=== PATIENT | male | born 1960 | race Caucasian/White ===

== ENCOUNTER 2024-12-13 03:42 | Emergency (ER) | payer MEDICARE, MEDICAID, SELFPAY ==
[2024-12-13] VITALS (12 sets, daily range): BP systolic 90–208; BP diastolic 53–175
[2024-12-13 05:04] LABS: % Basophils 0.7 % (0-2); % Eosinophils 3.9 % (0-6); % Immature Granulocytes 0.1 % (0-0.5); % Lymphocytes 21.7 % (20.5-51.1); % Monocytes 7.4 % (1.7-9.3); % Neutrophils 66.2 % (42.2-75.2); Absolute Basophils 0.1 10^3/uL (0-0.2); Absolute Eosinophils 0.3 10^3/uL (0-0.7); Absolute Lymphocytes 1.5 10^3/uL (1.2-3.4); Absolute Monocytes 0.5 10^3/uL (0.1-0.6); Absolute Neutrophils 4.6 10^3/uL (1.4-6.5); Hematocrit 38.8 % (39.0-52.0); Hemoglobin 13.4 g/dL (13.0-18.0); Mean Corp Hgb Conc. 34.5 g/dL (33.0-37.0); Mean Corpuscular Hgb 31.9 pg (27.0-31.0); Mean Corpuscular Volume 92.4 fL (80.0-94.0); Mean Platelet Volume 9.5 fL (7.4-10.4); Nucleated Red Blood Cells % 0 % (-); Platelet Count 182 10^3/uL (130-400); Red Cell Dist. Width 12.9 % (11.5-14.5)
[2024-12-13 05:25] LABS: Lactic Acid 0.7 mmol/L (0.7-2.0)
[2024-12-13 05:33] LABS: Blood Urea Nitrogen 28 mg/dl (9-20); Calcium 8.7 mg/dl (8.4-10.2); Carbon Dioxide 26 mmol/L (22-30); Chloride 104 mmol/L (98-107); Glucose 90 mg/dl (70-99); Sodium 136 mmol/L (135-145); eGFR > 60.00
--- NOTE | 2024-12-13 05:53 | ED.GENMED ---
History of Present Illness
General
Chief Complaint: Change in Mental Status
Source: records
Exam Limitations: dementia
Time Seen by Provider: 12/13/24 05:53
History of Present Illness
History of Present Illness:
64-year-old male with a history of chronic dementia progression of symptoms over time however his symptoms and dementia seemed worse yesterday. He had an unwitnessed fall this morning. Sent in for evaluation. Patient does not add any history or
complaints.
Past History
Past History
ED Past Medical History: Psychiatric and Other (Dementia/Parkinson's)
Review of Systems
Review of Systems
Unable to obtain full review of systems at this time due to: dementia
All Other Systems: Not applicable
Phy Exam
Physical Exam
Physical Exam:
GENERAL: Alert and oriented x 1 in no apparent distress. No scalp trauma
EYE: Orbits normal.
NECK: Supple, nontender
ENT: Pharynx without erythema
CARDIAC: Regular rate and rhythm without any obvious murmurs.
LUNGS: Clear breath sounds,normal
ABDOMEN: Soft, without focal tenderness or distention
NEUROLOGICAL: Alert and oriented , grossly non-focal
SKIN: Warm and dry, superficial abrasion to the left anterior tibia. Appears old
MUSCULOSKELETAL: No edema, mild contracture or spasm of the left arm.
PSYCH: Flat affect
Course
Orders/Labs/Results
Orders:
Orders
12/13/24 04:39
CT Head W/o Iv Contrast Urgent
Comment:
Reason For Exam: unwitnessed fall/cms
12/13/24 04:44
Cervical Spine wo Contrast CT [CT Cervical Spine W/o Iv Contr] Urgent
Comment:
Reason For Exam: unwitnessed fall/cms
12/13/24 04:55
Basic Metabolic Panel Urgent
Comment: NO K
Complete Blood Count/With Diff Urgent
Lactic Acid Urgent
12/13/24 07:04
Comprehensive Metabolic Panel Urgent
Urinalysis Reflex To Culture Urgent
Date Specimen was Collected: 12/13/24
Time Specimen was Collected: 04:40
Urine Microscopic Reflex Cult Urgent
12/13/24 08:33
0.9% Sodium Chloride 1000 ml [Nss] 1,000 ml IV BOLUS
Abnormal Lab Results
12/13/24 12/13/24
04:55 07:04
RBC 4.20 L 10^6/uL
(4.70-6.10)
Hct 38.8 L %
(39.0-52.0)
MCH 31.9 H pg
(27.0-31.0)
BUN 28 H mg/dl 27 H mg/dl
(9-20) (9-20)
Creatinine 0.6 L mg/dL
(0.7-1.3)
Total Protein 5.7 L g/dl
(6.3-8.2)
Urine Ketones 2+ A
(Negative)
Urine Urobilinogen 2+ A
(Neg - 1+)
Urine Bacteria (Reflex) Few A
(Negative)
Urine Albumin (Reflex) 1+ A
(Neg - Trace)
12/13/24 04:55
12/13/24 07:04
Vital Signs
Initial and Last Documented VS:
Initial Vital Signs
Temp Pulse Resp BP Pulse Ox
97.5 F 70 22 110/87 96
12/13/24 03:46 12/13/24 03:46 12/13/24 03:46 12/13/24 03:46 12/13/24 03:46
Last Documented Vital Signs
Temp Pulse Resp BP Pulse Ox
97.5 F 76 18 119/76 97
12/13/24 03:46 12/13/24 07:38 12/13/24 07:38 12/13/24 07:38 12/13/24 07:39
*Radiology
Radiology exam reviewed: radiology read reviewed (No acute findings on CT.)
*Pulse Oximetry
Patient hypoxic: no
*Critical Care Note
Total Time (30-74mins, 75-104mins- exclusive of procedures): Not Applicable
Update Note
Update Note:
Patient is remained medically stable. No serious issues found. No trauma no infectious issues. Brother updated. Stable for discharge mildly dehydrated.
ED Attending Note
-
Portions of this chart may have been created with voice recognition software.� Occasional wrong word or��sound alike� substitutions may have occurred due to the inherent limitations of voice recognition software.
Discharge Plan
Departure
Patient Disposition: Home (Routine Discharge)
Date of Disposition: 12/13/24
Time of Disposition: 09:14
Patient with high blood pressure during this ER visit?: No
Discharge Problem:
Change in mental status, Mild dehydration
Instructions: Altered Mental Status (DC), Dementia (DC)
Prescriptions:
No Action
quetiapine [Seroquel] 25 mg Tablet
25 mg PO DAILY
acetaminophen [Tylenol] 325 mg Tablet
650 mg PO QID PRN (Reason: pain)
polyethylene glycol 3350 17 gram Powder In Packet
17 g PO DAILY PRN (Reason: Constipation)
pravastatin 40 mg Tablet
40 mg PO DAILY
citalopram 10 mg Tablet
10 mg PO DAILY
loperamide [Imodium A-D] 2 mg Tablet
2 mg PO Q6H PRN (Reason: diarrhea)
guaifenesin 100 mg/5 mL Liquid
300 mg PO Q4H PRN (Reason: cough)
famotidine 20 mg Tablet
20 mg PO DAILY
docusate sodium 100 mg Capsule
100 mg PO BID
folic acid 1 mg Tablet
1 mg PO DAILY
calcium carbonate 500 mg calcium (1,250 mg) Tablet,Chewable
500 mg PO DAILY
aspirin 81 mg Tablet
81 mg PO DAILY
carbidopa-levodopa 25-100 mg Tablet
2 tab PO QID
quetiapine [Seroquel] 50 mg Tablet
50 mg PO HS
diclofenac sodium 1 % Gel
4 g TOPICAL QID
Rx Instructions:
apply to R shoulder for pain
melatonin 5 mg Tablet
10 mg PO HS PRN (Reason: insomnia)
cholecalciferol (vitamin D3) [Vitamin D3] 125 mcg (5,000 unit) Tablet
125 mcg PO DAILY
Referrals:
Tha Aviles MD [Family Provider] - Follow up in 2-3 days
Interventions
Interventions:
*Risk Screen - Suicide Last Done: 12/13/24 03:46
*General Assessment Last Done: 12/13/24 03:46
*Neglect/Abuse Screening Last Done: 12/13/24 03:46
ED- Fall Risk Assessment Last Done: 12/13/24 07:39
ED- Pulmonary Assessment Last Done: 12/13/24 07:39
ED-Psychological Assessment Last Done: 12/13/24 07:39
ED- Neurological Assessment Last Done: 12/13/24 04:10
ED- Cardiac Assessment Last Done: 12/13/24 07:39
Discharge Date and Time
Print Language: KOREAN
[2024-12-13] MEDS: NSS 1000 IV (06:00)
[2024-12-13 07:17] LABS: Urine Albumin 1+ (Neg - Trace); Urine Bilirubin Negative (Negative); Urine Character Clear (Clear); Urine Color Yellow; Urine Glucose Negative (Negative); Urine Ketone 2+ (Negative); Urine Leukocyte Negative (Negative); Urine Nitrite Negative (Negative); Urine Occult Blood Negative (Negative); Urine Specific Gravity 1.025 (<1.030); Urine Urobilinogen 2+ (Neg - 1+)
[2024-12-13 07:28] LABS: ALT (SGPT) < 10 U/L (0-50); AST (SGOT) 17 U/L (17-59); Albumin 3.5 g/dl (3.5-5.0); Alkaline Phosphatase 76 U/L (38-126); Blood Urea Nitrogen 27 mg/dl (9-20); Calcium 8.6 mg/dl (8.4-10.2); Carbon Dioxide 27 mmol/L (22-30); Chloride 105 mmol/L (98-107); Glucose 84 mg/dl (70-99); Potassium 4.3 mmol/L (3.5-5.1); Sodium 138 mmol/L (135-145); Total Bilirubin 0.8 mg/dl (0.2-1.3); Total Protein 5.7 g/dl (6.3-8.2); eGFR > 60.00
[2024-12-13 08:10] LABS: Urine Amorphous Seen; Urine Bacteria Few (Negative); Urine Red Blood Cell 0-2 /HPF (0-2); Urine Urothelial Cell 0-2 /LPF (FEW); Urine White Cell 0-2 /HPF (0-5)
--- NOTE | 2024-12-13 09:41 | EDRN ---
Pt scheduled to leave via [facility] ambulance at 10:30.
--- NOTE | 2024-12-13 09:42 | EDRN ---
Report was called at [facility] 09:00 by Jack Granados RN at [phone].
--- NOTE | 2024-12-13 10:45 | EDRN ---
Pt cleansed after having very large soft brown BM prior to leaving.
== END 2024-12-13 10:55 ==
LOC: EMR 03:42
PROVIDERS: Emergency Medicine; EMERGENCY PHYSICIAN Emergency Medicine; FAMILY PHYSICIAN Internal Medicine
DX: E86.0 Dehydration (principal); G20.A1 Parkinson's disease without dyskinesia, without mention of fluctuations; F02.80 Dementia in other diseases classified elsewhere, unspecified severity, without behavioral disturbance, psychotic disturbance, mood disturbance, and anxiety; S80.812A Abrasion, left lower leg, initial encounter; W19.XXXA Unspecified fall, initial encounter
CPT/HCPCS: 99284; 96360; 96361; 70450; 72125; 80048; 80053; 81003; 81015; 83605; 85025

== ENCOUNTER 2025-01-04 14:56 | Emergency (ER) | payer MEDICARE, OTHER, SELFPAY ==
[2025-01-04 14:59] VITALS: BP 155/74
--- NOTE | 2025-01-04 15:12 | ED.GENMED ---
History of Present Illness
General
Chief Complaint: Change in Mental Status
Source: records, family (Brother), ambulance crew and snf
Exam Limitations: dementia
Time Seen by Provider: 01/04/25 15:04
Nursing documentation reviewed up to this point in time: agreed with
History of Present Illness
History of Present Illness:
64-year-old male with past medical history of hypertension, hyperlipidemia, GERD, Parkinson's disease, dementia presents to the emergency room from [facility] for evaluation of agitation. Patient is unable to meaningfully dissipate history due
to his severe dementia and advanced Parkinson's disease. According to snf report he was agitated today which happens occasionally; he is ordered for Seroquel as well as Ativan and was given a dose of as needed Ativan 2 mg IM today but this
did not help with his agitation and so he was sent to the ER to be assessed. He does have a history of falls but no falls witnessed or reported per snf staff. I spoke to his brother he says that patient has had similar issues in the past,
no other acute concerns.
Past History
Past History
ED Past Medical History: Psychiatric and Other (Dementia/Parkinson's)
Review of Systems
Review of Systems
Unable to obtain full review of systems at this time due to: dementia
All Other Systems: Not applicable
Phy Exam
Physical Exam
Physical Exam:
General: Awake, alert, agitated trying to get out of bed
Head: Normocephalic, atraumatic
Eyes: Conjunctiva normal, pupils equal round and reactive to light bilaterally
Throat: Airway intact, handling secretions
Neck: Trachea midline, supple without meningismus
Lungs: Clear to auscultation bilaterally, no wheezing, rales, rhonchi
Heart: Regular rate and rhythm, no murmurs, gallops, or rubs
Abd: Soft, non distended, no apparent tenderness, no palpable masses or hernias
Back: No signs of trauma to the back or flank
Neuro: Awake and alert, moving all extremities equally
Extremities: Old abrasions and minor old bruises on the legs but no signs of acute trauma and no apparent pain with palpation of all extremities; no edema in extremities, equal pulses in all extremities
Scores
Heart Failure Risk
Heart Failure Risk Score: Not Applicable
Heart Score for Chest Pain Patients
STEMI patient?: Not applicable
Withdrawal Assessment of Alcohol
Withdrawal Assessment Completed?: Not applicable
Course
Orders/Labs/Results
Orders:
Orders
01/04/25 15:11
CT Head W/o Iv Contrast Urgent
Comment:
Reason For Exam: change in mentation
Urinalysis Reflex To Culture Urgent
Date Specimen was Collected: 01/04/25
Time Specimen was Collected: 15:17
01/04/25 15:20
Electrocardiogram (*1) Urgent
Reason for Study: QTc Monitoring
EKG- Treatment ONCE
01/04/25 15:40
Olanzapine [Zyprexa] 10 mg IM NOW STA
01/04/25 15:42
Midazolam HCl [Versed] 2 mg IM NOW STA
01/04/25 15:53
COVID-19 Antigen Urgent
Source: Nasal Swab
Complete Blood Count/With Diff Urgent
Comprehensive Metabolic Panel Urgent
Influenza A+B Rapid Molecular Urgent
[facility] Source: Nasal Swab
Specimen Description:
Abnormal Lab Results
01/04/25
15:53
RBC 4.35 L 10^6/uL
(4.70-6.10)
MCH 32.2 H pg
(27.0-31.0)
Lymphocytes % 17.5 L %
(20.5-51.1)
BUN 23 H mg/dl
(9-20)
Creatinine 0.6 L mg/dL
(0.7-1.3)
Glucose 138 H mg/dl
(70-99)
Total Protein 6.1 L g/dl
(6.3-8.2)
01/04/25 15:53
01/04/25 15:53
Vital Signs
Initial and Last Documented VS:
Initial Vital Signs
Temp Pulse Resp BP Pulse Ox
36.6 C 99 20 155/74 98
01/04/25 14:59 01/04/25 14:59 01/04/25 14:59 01/04/25 14:59 01/04/25 14:59
Last Documented Vital Signs
Temp Pulse Resp BP Pulse Ox
36.6 C 83 20 155/74 95
01/04/25 14:59 01/04/25 16:43 01/04/25 16:43 01/04/25 14:59 01/04/25 16:43
MDM/Problems Addressed
Differential Diagnosis Includes:
Agitated delirium related to dementia, infection such as UTI or pneumonia or viral syndrome, brain bleed, electrolyte abnormality/dehydration
MDM/Problems Addressed:
64-year-old male presents for change in mental status�more agitated today and refractory to normal meds. Vitals and exam as above. Will send off labs and basic infectious workup to evaluate for any secondary cause for agitation. Will medicate to
calm him as he continues to try to get out of bed and is not redirectable. Check EKG for QTc monitoring. Check CT head. Reassess after the above.
CT head negative for any acute pathology. Labs here are unremarkable. Patient calm since sedation here. I suspect this is an episode of agitated delirium in the setting of known dementia. Call placed to patient's brother to discuss disposition
at this point no clear emergent pathology and I think he can be discharged back to snf. Brother feels comfortable this plan. Will arrange for transport back to snf.
Chronic conditions affecting care:
Dementia, Parkinson's
Acute Exacerbation and/or Progression of Chronic Illness:
Acutely hypertensive
Acute Exacerbation and/or Progression of Chronic Illness: HTN
*Radiology
Radiology exam reviewed: radiology read reviewed
*Pulse Oximetry
Patient hypoxic: no
*EKG
Interpreted by ED Provider?: Yes
Heart Rate: 78
Rate: normal
Rhythm: sinus
St[place]: normal axis
Interval: normal interval and normal QT interval
QRS Pattern: normal QRS
Ischemia: no ischemia
*Critical Care Note
Total Time (30-74mins, 75-104mins- exclusive of procedures): Not Applicable
Data Reviewed
Review of Other/Old Records Reveals: Labs and Records
Source: records, family, ambulance crew and snf
Patient Management
Social determinants of health affecting care: Living situation (Lives in a monitored setting)
Escalation/DeEscalation of care consider admission/obs:
Shared decision making with brother�discharged back to snf
ED Attending Note
-
Portions of this chart may have been created with voice recognition software.� Occasional wrong word or��sound alike� substitutions may have occurred due to the inherent limitations of voice recognition software.
Discharge Plan
Departure
Patient Disposition: Home (Routine Discharge)
Date of Disposition: 01/04/25
Time of Disposition: 17:53
Patient with high blood pressure during this ER visit?: Yes
Discharge Problem:
Delirium
Instructions: Dementia (DC)
Prescriptions:
No Action
quetiapine [Seroquel] 25 mg Tablet
25 mg PO DAILY
acetaminophen [Tylenol] 325 mg Tablet
650 mg PO QID PRN (Reason: pain)
polyethylene glycol 3350 17 gram Powder In Packet
17 g PO DAILY PRN (Reason: Constipation)
pravastatin 40 mg Tablet
40 mg PO DAILY
citalopram 10 mg Tablet
10 mg PO DAILY
loperamide [Imodium A-D] 2 mg Tablet
2 mg PO Q6H PRN (Reason: diarrhea)
guaifenesin 100 mg/5 mL Liquid
300 mg PO Q4H PRN (Reason: cough)
famotidine 20 mg Tablet
20 mg PO DAILY
docusate sodium 100 mg Capsule
100 mg PO BID
folic acid 1 mg Tablet
1 mg PO DAILY
calcium carbonate 500 mg calcium (1,250 mg) Tablet,Chewable
500 mg PO DAILY
aspirin 81 mg Tablet
81 mg PO DAILY
carbidopa-levodopa 25-100 mg Tablet
2 tab PO QID
quetiapine [Seroquel] 50 mg Tablet
50 mg PO HS
diclofenac sodium 1 % Gel
4 g TOPICAL QID
Rx Instructions:
apply to R shoulder for pain
melatonin 5 mg Tablet
10 mg PO HS PRN (Reason: insomnia)
cholecalciferol (vitamin D3) [Vitamin D3] 125 mcg (5,000 unit) Tablet
125 mcg PO DAILY
Referrals:
El Almazan DO [Family Provider] - Follow up in 2-3 days
Activity Restrictions/Additional Instructions:
Thank you for visiting the Emergency Department at [facility].
1. Please schedule a follow up appointment as directed. Call first thing tomorrow morning to make an appointment.
2. If indicated, please take your medications as instructed and indicated on discharge paperwork.
3. If any of your symptoms do not improve, or persist, or become more severe within 6-12 hours, please return to the emergency department for further care.
4. Please return to the emergency department if you develop a headache, neck pain/stiffness, fever greater than 100.4F, chest pain, shortness of breath, persistent nausea, vomiting, slurred speech, difficulty walking, numbness/tingling, weakness,
signs of infection or any other symptoms that are worrisome to you.
Please call [phone] if you have any questions.
Interventions
Interventions:
*General Assessment Last Done: 01/04/25 14:59
ED- Fall Risk Assessment Last Done: 01/04/25 15:43
ED- Pulmonary Assessment Last Done: 01/04/25 15:43
ED- Neurological Assessment Last Done: 01/04/25 15:43
ED- Cardiac Assessment Last Done: 01/04/25 15:43
Discharge Date and Time
Print Language: UZBEK
[2025-01-04] MEDS: VERSED 2 MG IM (15:49)
[2025-01-04] MEDS: ZYPREXA 10 MG IM (15:49)
[2025-01-04 16:25] LABS: % Basophils 0.5 % (0-2); % Eosinophils 3.5 % (0-6); % Immature Granulocytes 0.3 % (0-0.5); % Lymphocytes 17.5 % (20.5-51.1); % Monocytes 8.5 % (1.7-9.3); % Neutrophils 69.7 % (42.2-75.2); Absolute Eosinophils 0.3 10^3/uL (0-0.7); Absolute Lymphocytes 1.3 10^3/uL (1.2-3.4); Absolute Monocytes 0.6 10^3/uL (0.1-0.6); Absolute Neutrophils 5.2 10^3/uL (1.4-6.5); Hematocrit 40.4 % (39.0-52.0); Mean Corp Hgb Conc. 34.7 g/dL (33.0-37.0); Mean Corpuscular Hgb 32.2 pg (27.0-31.0); Mean Corpuscular Volume 92.9 fL (80.0-94.0); Mean Platelet Volume 9.7 fL (7.4-10.4); Nucleated Red Blood Cells % 0 % (-); Platelet Count 190 10^3/uL (130-400); Red Blood Cell Count 4.35 10^6/uL (4.70-6.10); Red Cell Dist. Width 12.4 % (11.5-14.5); White Blood Cell Count 7.4 10^3/uL (4.8-10.8)
[2025-01-04 16:38] LABS: ALT (SGPT) < 10 U/L (0-50); AST (SGOT) 17 U/L (17-59); Alkaline Phosphatase 90 U/L (38-126); Blood Urea Nitrogen 23 mg/dl (9-20); Calcium 8.9 mg/dl (8.4-10.2); Carbon Dioxide 25 mmol/L (22-30); Chloride 104 mmol/L (98-107); Glucose 138 mg/dl (70-99); Sodium 136 mmol/L (135-145); Total Bilirubin 0.8 mg/dl (0.2-1.3); Total Protein 6.1 g/dl (6.3-8.2); eGFR > 60.00
[2025-01-04 16:42] LABS: COVID-19 Antigen Negative (Negative)
== END 2025-01-04 19:28 | disposition home or self-care (01) ==
LOC: EMR 14:56
PROVIDERS: EMERGENCY PHYSICIAN Emergency Medicine; FAMILY PHYSICIAN Family Medicine
DX: F03.90 Unspecified dementia, unspecified severity, without behavioral disturbance, psychotic disturbance, mood disturbance, and anxiety (principal); F05 Delirium due to known physiological condition; I10 Essential (primary) hypertension; E78.5 Hyperlipidemia, unspecified; K21.9 Gastro-esophageal reflux disease without esophagitis; G20.A1 Parkinson's disease without dyskinesia, without mention of fluctuations; Z11.52 Encounter for screening for COVID-19
CPT/HCPCS: 99285; 96372 ×2; 70450; 80053; 85025; 87502; 87811; 93005; J2358

== ENCOUNTER 2025-01-21 19:32 | Emergency (ER) | payer MEDICARE, OTHER, SELFPAY ==
[2025-01-21 19:34] VITALS: BP 113/68; BMI 24.1
--- NOTE | 2025-01-21 20:03 | ED.GENMED ---
History of Present Illness
General
Chief Complaint: Anxiety
Source: patient
Exam Limitations: none
Time Seen by Provider: 01/21/25 19:48
Nursing documentation reviewed up to this point in time: agreed with
History of Present Illness
History of Present Illness:
Patient to ED for eval of aggression. He has a history of parkinson's disease with severe dementia. According to [place] report he became aggressive with staff tonight. Brought to ED by EMS for eval. On arrival he is sleeping but arousable,
cooperative.
Past History
Past History
ED Past Medical History: GERD, HTN, Hypercholesterolemia, Psychiatric, Other (Dementia/Parkinson's) and Other (Long QT, dysphagia)
Review of Systems
Review of Systems
Allergies reviewed?: Yes
All Other Systems: ROS reviewed and negative except as documented in HPI and ROS
Constitutional: Reports no symptoms
EENT: Reports no symptoms
Respiratory: Reports no symptoms
Cardiac: Reports no symptoms
ABD/GI: Reports no symptoms
: Reports no symptoms
Musculoskeletal: Reports no symptoms
Skin: Reports no symptoms
Neurological: Reports no symptoms
Psychiatric: Reports other (aggitation [employer]IST)
Phy Exam
General Physical Exam
General Presentation: no apparent distress
General age: appears stated age
General Skin: warm and dry
General Habitus: normal
General Mental: alert
Cardiovascular Exam
Cardiovascular Exam: regular rate/rhythm
Pulmonary Exam
Pulmonary Exam: lungs clear and no respiratory distress
Gastrointestinal Exam
Gastrointestinal Exam: normal bowel sounds, non tender, soft, no organomegaly, no pulsatile mass and non distended
Musculoskeletal Exam
Musculoskeletal Exam: neuro vasc intact
Skin Exam
Skin Exam: normal color, warm/dry and other (old bruising noted to bilateral ant. knees, left lateral hip. Multiple healing abrasions/scratches noted to BLE)
Psychiatric Exam
Psychiatric Exam: normal mood/affect
Course
Orders/Labs/Results
Orders:
Orders
01/21/25 19:49
Complete Blood Count/With Diff Urgent
Comprehensive Metabolic Panel Urgent
01/21/25 20:04
Urinalysis Reflex To Culture Urgent
Date Specimen was Collected: 01/21/25
Time Specimen was Collected: 20:03
Urine Microscopic Reflex Cult Urgent
Abnormal Lab Results
01/21/25 01/21/25
19:49 20:04
RBC 4.32 L 10^6/uL
(4.70-6.10)
MCH 31.5 H pg
(27.0-31.0)
Eosinophils % 6.1 H %
(0-6)
Chloride 108 H mmol/L
(98-107)
BUN 30 H mg/dl
(9-20)
Glucose 135 H mg/dl
(70-99)
AST 15 L U/L
(17-59)
Total Protein 6.0 L g/dl
(6.3-8.2)
Urine Ketones 1+ A
(Negative)
Ur Occult Blood Reflex 1+ A
(Negative)
Urine Bacteria (Reflex) Few A
(Negative)
Urine Albumin (Reflex) 1+ A
(Neg - Trace)
01/21/25 19:49
01/21/25 19:49
Vital Signs
Initial and Last Documented VS:
Initial Vital Signs
Temp Pulse Resp BP Pulse Ox
98.5 F 72 16 113/68 96
01/21/25 19:34 01/21/25 19:34 01/21/25 19:34 01/21/25 19:34 01/21/25 19:34
Last Documented Vital Signs
Temp Pulse Resp BP Pulse Ox
98.5 F 72 16 113/68 96
01/21/25 19:34 01/21/25 19:34 01/21/25 19:34 01/21/25 19:34 01/21/25 19:34
*Critical Care Note
Total Time (30-74mins, 75-104mins- exclusive of procedures): Not Applicable
Update Note
Update Note:
Patient sent to ED from [place] for aggitation. He has a history of aggitation. On arrival to ED he is sleeping but arousable, cooperative. Labs reviewed. No concerning findings. No findings tonight to explain his outburst at [place] although he does
have a documented history of this. Will discharge back to [place].
ED Attending Note
-
Portions of this chart may have been created with voice recognition software.� Occasional wrong word or��sound alike� substitutions may have occurred due to the inherent limitations of voice recognition software.
Discharge Plan
Departure
Patient Disposition: [facility]/SNF
Date of Disposition: 01/21/25
Time of Disposition: 21:01
Patient with high blood pressure during this ER visit?: No
Condition: Good
Covid-19: Not Applicable
Discharge Problem:
Agitation due to dementia
Instructions: Anxiety, Adult (DC)
Prescriptions:
No Action
quetiapine [Seroquel] 25 mg Tablet
25 mg PO DAILY
acetaminophen [Tylenol] 325 mg Tablet
650 mg PO QID PRN (Reason: pain)
polyethylene glycol 3350 17 gram Powder In Packet
17 g PO DAILY PRN (Reason: Constipation)
pravastatin 40 mg Tablet
40 mg PO DAILY
citalopram 10 mg Tablet
10 mg PO DAILY
loperamide [Imodium A-D] 2 mg Tablet
2 mg PO Q6H PRN (Reason: diarrhea)
guaifenesin 100 mg/5 mL Liquid
300 mg PO Q4H PRN (Reason: cough)
famotidine 20 mg Tablet
20 mg PO DAILY
docusate sodium 100 mg Capsule
100 mg PO BID
folic acid 1 mg Tablet
1 mg PO DAILY
calcium carbonate 500 mg calcium (1,250 mg) Tablet,Chewable
500 mg PO DAILY
aspirin 81 mg Tablet
81 mg PO DAILY
carbidopa-levodopa 25-100 mg Tablet
2 tab PO QID
quetiapine [Seroquel] 50 mg Tablet
50 mg PO HS
diclofenac sodium 1 % Gel
4 g TOPICAL QID
Rx Instructions:
apply to R shoulder for pain
melatonin 5 mg Tablet
10 mg PO HS PRN (Reason: insomnia)
cholecalciferol (vitamin D3) [Vitamin D3] 125 mcg (5,000 unit) Tablet
125 mcg PO DAILY
Referrals:
UNKNOWN,NO INTERVIEW [Family Provider] -
Activity Restrictions/Additional Instructions:
Follow up with your healthcare provider in the AM
Interventions
Interventions:
*Risk Screen - Suicide Last Done: 01/21/25 19:34
*General Assessment Last Done: 01/21/25 19:34
*Neglect/Abuse Screening Last Done: 01/21/25 19:34
*ED- Fall Risk Assessment Last Done: 01/21/25 19:34
*ED COVID-19 Vaccine History Last Done: 01/21/25 19:34
*Nursing Disposition Last Done: 01/21/25 21:44
ED-Psychological Assessment Last Done: 01/21/25 20:08
Discharge Date and Time
Discharge Date/Time: 01/21/25 21:49
Print Language: MALTESE
[2025-01-21 20:14] LABS: % Basophils 0.8 % (0-2); % Eosinophils 6.1 % (0-6); % Immature Granulocytes 0.2 % (0-0.5); % Lymphocytes 22.5 % (20.5-51.1); % Monocytes 9.3 % (1.7-9.3); % Neutrophils 61.1 % (42.2-75.2); Absolute Basophils 0.1 10^3/uL (0-0.2); Absolute Eosinophils 0.4 10^3/uL (0-0.7); Absolute Lymphocytes 1.3 10^3/uL (1.2-3.4); Absolute Monocytes 0.6 10^3/uL (0.1-0.6); Absolute Neutrophils 3.6 10^3/uL (1.4-6.5); Hematocrit 39.6 % (39.0-52.0); Hemoglobin 13.6 g/dL (13.0-18.0); Mean Corp Hgb Conc. 34.3 g/dL (33.0-37.0); Mean Corpuscular Hgb 31.5 pg (27.0-31.0); Mean Corpuscular Volume 91.7 fL (80.0-94.0); Mean Platelet Volume 9.5 fL (7.4-10.4); Nucleated Red Blood Cells % 0 % (-); Platelet Count 179 10^3/uL (130-400); Red Blood Cell Count 4.32 10^6/uL (4.70-6.10); Red Cell Dist. Width 12.4 % (11.5-14.5); White Blood Cell Count 5.9 10^3/uL (4.8-10.8)
[2025-01-21 20:16] LABS: Urine Albumin 1+ (Neg - Trace); Urine Bilirubin Negative (Negative); Urine Character Clear (Clear); Urine Color Yellow; Urine Glucose Negative (Negative); Urine Ketone 1+ (Negative); Urine Leukocyte Negative (Negative); Urine Nitrite Negative (Negative); Urine Occult Blood 1+ (Negative); Urine Specific Gravity 1.025 (<1.030); Urine Urobilinogen 1+ (Neg - 1+)
[2025-01-21 20:28] LABS: Urine Red Blood Cell 0-2 /HPF (0-2)
[2025-01-21 20:29] LABS: Urine Bacteria Few (Negative); Urine Mucus Moderate; Urine White Cell 0-2 /HPF (0-5)
[2025-01-21 20:32] LABS: ALT (SGPT) < 10 U/L (0-50); AST (SGOT) 15 U/L (17-59); Albumin 3.6 g/dl (3.5-5.0); Alkaline Phosphatase 89 U/L (38-126); Blood Urea Nitrogen 30 mg/dl (9-20); Calcium 8.9 mg/dl (8.4-10.2); Carbon Dioxide 25 mmol/L (22-30); Chloride 108 mmol/L (98-107); Estimated Creatinine Clearance 105 ml/min; Glucose 135 mg/dl (70-99); Potassium 3.7 mmol/L (3.5-5.1); Sodium 138 mmol/L (135-145); Total Bilirubin 0.7 mg/dl (0.2-1.3); eGFR > 60.00
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
== END 2025-01-21 21:49 ==
LOC: EMR 19:32
PROVIDERS: Nurse Practitioner; EMERGENCY PHYSICIAN Emergency Medicine
DX: R45.1 Restlessness and agitation (principal); F02.C4 Dementia in other diseases classified elsewhere, severe, with anxiety; G20.A1 Parkinson's disease without dyskinesia, without mention of fluctuations; I10 Essential (primary) hypertension; E78.00 Pure hypercholesterolemia, unspecified
CPT/HCPCS: 99283; 80053; 81003; 81015; 85025

== ENCOUNTER 2025-02-23 05:50 | Emergency (ER) | payer MEDICARE, OTHER, SELFPAY ==
[2025-02-23 05:55] VITALS: BP 122/68; BMI 24.6
[2025-02-23 06:00] VITALS: BP 125/65
--- NOTE | 2025-02-23 06:21 | ED.GENMED ---
History of Present Illness
General
Chief Complaint: Fall
Time Seen by Provider: 02/23/25 06:21
History of Present Illness
History of Present Illness:
TIME OF INITIAL ENCOUNTER: 6:20 AM
HPI: The patient came in by ambulance from [facility] after an unwitnessed fall. He was reportedly sitting in a Viry chair. He is on Lovenox and aspirin. The patient provides no meaningful history. The details of the event are unclear.
EXAM:
GENERAL: Appears in no distress but appears chronically ill
HEENT: Somewhat dry oral mucosa, he keeps his eyes closed, no evidence of craniofacial trauma
CARDIOVASCULAR: Regular rate and rhythm
PULMONARY: No respiratory distress, breathing is nonlabored, equal and clear breath sounds
ABDOMEN: Soft and nontender with no peritoneal signs
NEUROLOGIC: The patient has evidence of dementia, not oriented to month or place, strength is equal in all extremities, he does speak when spoken to but does not provide any meaningful history
EXTREMITIES: Moves all extremities equally, no tenderness, no edema
PYSCHIATRIC: Very limited historian, poor insight and judgment, he does speak when spoken to
NUMBER AND COMPLEXITY OF PROBLEMS ADDRESSED AT THE ENCOUNTER
� Chronic conditions affecting care: Dementia, Parkinson's, high blood pressure, anxiety/depression, psychosis
� Acute Exacerbation and/or Progression of Chronic Illness: This is an acute problem
� Differential Diagnosis includes: Fall, contusion, behavioral disturbance, intracranial hemorrhage, minor head injury
AMOUNT AND/OR COMPLEXITY OF DATA TO BE REVIEWED AND ANALYZED
� I performed an independent evaluation of and my interpretation is:
EKG:
CT: CT brain shows no acute abnormality, chronic findings noted
X-rays:
Laboratory Studies:
Other:
� Review of other/old records: The patient was seen here 1 month ago with agitation related to dementia
� Clinical information was obtained by an independent historian: EMS
� Prescriptions/Medications Considered but not given:
� Further testing considered but not performed: Considered x-rays of the patient has no bony tenderness
RISK OF COMPLICATIONS AND/OR MORBIDITY OR MORTALITY OF PATIENT MANAGEMENT
� Social determinants of health affecting care: [facility]
� Discussion with other providers:
� Escalation of care including admission/observation vs risk of discharge considered: Given patient's age along with being on anticoagulation and antiplatelet with limited ability to provide any meaningful history, will obtain CT
imaging of the brain. Otherwise, he has no evidence of trauma based on physical examination.
ANY OTHER UPDATES:
Past History
Past History
ED Past Medical History: GERD, HTN, Hypercholesterolemia, Psychiatric, Other (Dementia/Parkinson's) and Other (Long QT, dysphagia)
Phy Exam
Physical Exam
Physical Exam:
See HPI
Course
Orders/Labs/Results
Orders:
Orders
02/23/25 06:26
CT Head W/o Iv Contrast Urgent
Comment:
Reason For Exam: unwitnessed fall dementia aspirin lovenox
Vital Signs
Initial and Last Documented VS:
Initial Vital Signs
Pulse Ox
99
02/23/25 05:53
Last Documented Vital Signs
Temp Pulse Resp BP Pulse Ox
37.0 C 58 16 125/65 98
02/23/25 05:55 02/23/25 05:55 02/23/25 05:55 02/23/25 06:00 02/23/25 06:30
*Critical Care Note
Total Time (30-74mins, 75-104mins- exclusive of procedures): Not Applicable
ED Attending Note
-
Portions of this chart may have been created with voice recognition software.� Occasional wrong word or��sound alike� substitutions may have occurred due to the inherent limitations of voice recognition software.
Discharge Plan
Departure
Patient Disposition: Home (Routine Discharge)
Date of Disposition: 02/23/25
Time of Disposition: 07:55
Patient with high blood pressure during this ER visit?: Yes
Discharge Problem:
Fall
Prescriptions:
No Action
quetiapine [Seroquel] 25 mg Tablet
25 mg PO DAILY
acetaminophen [Tylenol] 325 mg Tablet
650 mg PO QID PRN (Reason: pain)
polyethylene glycol 3350 17 gram Powder In Packet
17 g PO DAILY PRN (Reason: Constipation)
pravastatin 40 mg Tablet
40 mg PO DAILY
citalopram 10 mg Tablet
10 mg PO DAILY
loperamide [Imodium A-D] 2 mg Tablet
2 mg PO Q6H PRN (Reason: diarrhea)
guaifenesin 100 mg/5 mL Liquid
300 mg PO Q4H PRN (Reason: cough)
famotidine 20 mg Tablet
20 mg PO DAILY
docusate sodium 100 mg Capsule
100 mg PO BID
folic acid 1 mg Tablet
1 mg PO DAILY
calcium carbonate 500 mg calcium (1,250 mg) Tablet,Chewable
500 mg PO DAILY
aspirin 81 mg Tablet
81 mg PO DAILY
carbidopa-levodopa 25-100 mg Tablet
2 tab PO QID
quetiapine [Seroquel] 50 mg Tablet
50 mg PO HS
diclofenac sodium 1 % Gel
4 g TOPICAL QID
Rx Instructions:
apply to R shoulder for pain
melatonin 5 mg Tablet
10 mg PO HS PRN (Reason: insomnia)
cholecalciferol (vitamin D3) [Vitamin D3] 125 mcg (5,000 unit) Tablet
125 mcg PO DAILY
Referrals:
Tha Aviles MD [Family Provider] -
Activity Restrictions/Additional Instructions:
CAT scan of the brain shows no acute abnormality. There is no bleeding in the brain. Return here if worse or other concerns.
Interventions
Interventions:
*Risk Screen - Suicide Last Done: 02/23/25 05:55
*General Assessment Last Done: 02/23/25 05:55
*Neglect/Abuse Screening Last Done: 02/23/25 05:55
*ED- Fall Risk Assessment Last Done: 02/23/25 05:55
*ED COVID-19 Vaccine History Last Done: 02/23/25 05:55
ED-Musculoskeletal Assessment Last Done: 02/23/25 05:55
ED- Neurological Assessment Last Done: 02/23/25 05:55
ED-Skin Assessment Last Done: 02/23/25 05:55
Discharge Date and Time
Print Language: SOMALI
[2025-02-23 11:22] VITALS: BP 118/80
== END 2025-02-23 11:35 | disposition home or self-care (01) ==
LOC: EMR 05:50
PROVIDERS: EMERGENCY PHYSICIAN Emergency Medicine; FAMILY PHYSICIAN Internal Medicine
DX: Z04.89 Encounter for examination and observation for other specified reasons (principal); W19.XXXA Unspecified fall, initial encounter; K21.9 Gastro-esophageal reflux disease without esophagitis; I10 Essential (primary) hypertension; E78.00 Pure hypercholesterolemia, unspecified; G20.A1 Parkinson's disease without dyskinesia, without mention of fluctuations; F02.80 Dementia in other diseases classified elsewhere, unspecified severity, without behavioral disturbance, psychotic disturbance, mood disturbance, and anxiety; Z79.01 Long term (current) use of anticoagulants
CPT/HCPCS: 99284; 70450

== ENCOUNTER 2025-08-23 23:17 | Emergency (ER) | payer MEDICARE, OTHER, SELFPAY ==
[2025-08-23 23:20] VITALS: BP 103/68
[2025-08-23 23:28] VITALS: BMI 22.6
--- NOTE | 2025-08-23 23:45 | ED.GENMED ---
History of Present Illness
General
Chief Complaint: Fall
Source: patient and ambulance crew
Exam Limitations: dementia
Time Seen by Provider: 08/23/25 23:31
Nursing documentation reviewed up to this point in time: agreed with
History of Present Illness
History of Present Illness:
Note:
CHIEF COMPLAINT(S)
Unwitnessed fall from a chair.
HISTORY OF PRESENT ILLNESS
The patient is a 65-year-old male with Parkinsons disease and dementia who experienced an unwitnessed fall from his chair in the hallway. There were no noted head injuries from the fall, and the patient appears to be at his baseline according to the
assessment following the incident.
CHRONIC MEDICAL CONDITIONS SIGNIFICANTLY AFFECTING CARE
- Parkinsons disease
- Dementia
PHYSICAL EXAM
General: Alert, no acute distress.
Skin: Warm, dry.
Head: Normocephalic, atraumatic.
Neck: Supple, trachea midline.
Eye, Ears, Nose, Mouth, and Throat: Oral mucosa moist.
Cardiovascular: Normal peripheral perfusion, No edema.
Respiratory: Respirations are non-labored.
Gastrointestinal: Abdomen nondistended.
Back: Normal range of motion, Normal alignment.
Musculoskeletal: Normal range of motion, normal strength.
Neurological: Alert and oriented to person, No focal neurological deficit observed.
Psychiatric: dementia, intermittently agitated, at baseline
DIFFERENTIAL DIAGNOSIS
The Differential Diagnosis includes, in no particular order and is not limited to:
1. Parkinsonian gait instability
2. Orthostatic hypotension
3. Medication side effects
4. Cerebral small vessel disease
5. Urinary tract infection leading to confusion and fall
6. Subdural hematoma (despite no noted head injury)
7. Environmental hazards
8. Syncope
9. Vestibular dysfunction
10. Dehydration or electrolyte imbalance
CARE-UPDATE
08/24/25 - 02:57
CT scan results revealed no acute findings or signs of trauma. The patient is cleared and scheduled for discharge.
Disposition:
SUMMARY OF ENCOUNTER
The patient, a 65-year-old male with Parkinsons disease and dementia, presented to the emergency department following an unwitnessed fall from a chair. There were no signs of serious injury noted. The physical examination and assessment were
consistent with the patients baseline status. Imaging studies, namely a CT scan, revealed no acute findings or signs of trauma. The patients stability was confirmed, making him fit for discharge.
DISPOSITION
Discharge
ASSESSMENT
The patient appears to have sustained a mechanical fall without any serious injuries. The diagnosis of Parkinsonian gait instability as a contributing factor was considered, along with the potential for medication side effects and cognitive
impairment due to dementia.
PLAN
The patient is deemed stable for discharge with advice to monitor for any new symptoms, especially those indicative of neurological changes or injuries. The patients events director should ensure a follow-up with primary or neurological care to address
the ongoing management of Parkinsons disease and dementia.
FOLLOW-UP INSTRUCTIONS
The patient should follow up with primary care for further evaluation and management of Parkinsons disease and dementia as needed.
MEDICATION RECONCILIATION
During the visit, interim proxam was administered, and it was noted that the patient has nebulizers at home. Verify if this refers to a specific medication or treatment.
MEDICAL DECISION MAKING
- Complexity of Data Reviewed: Chronic conditions affecting care include Parkinsons disease and dementia. Differential diagnoses considered were Parkinsonian gait instability, orthostatic hypotension, and medication side effects.
- Data:
- Category 1: I reviewed and independently interpreted the CT scan results.
- Category 3: Discussion of management with the emergency department team regarding discharge planning.
- Risk: Consideration of Admission/Observation: Escalation of care including admission/observation was considered due to the complexity and risk associated with the patients presenting complaint and underlying comorbidities. However, the patient is
appropriate for outpatient management due to the lack of acute findings on workup, stable examination, and agreement with discharge planning.
DIAGNOSIS
Mechanical fall (ICD-10: W19.XXA)
Parkinsons disease (ICD-10: G20)
Dementia (ICD-10: F03.90)
Past History
Past History
ED Past Medical History: GERD, HTN, Hypercholesterolemia, Psychiatric, Other (Dementia/Parkinson's) and Other (Long QT, dysphagia)
Phy Exam
Physical Exam
Physical Exam:
.
Course
Orders/Labs/Results
Orders:
Orders
08/24/25 00:01
CT Head W/o Iv Contrast Urgent
Reason For Exam: fall, hit head
Vital Signs
Initial and Last Documented VS:
Initial Vital Signs
Temp Pulse Resp BP Pulse Ox
98.0 F 60 15 103/68 99
08/23/25 23:20 08/23/25 23:20 08/23/25 23:20 08/23/25 23:20 08/23/25 23:20
Last Documented Vital Signs
Temp Pulse Resp BP Pulse Ox
98.0 F 60 20 96/69 95
08/23/25 23:20 08/24/25 02:30 08/24/25 01:15 08/24/25 01:54 08/24/25 02:15
*Pulse Oximetry
SaO2: 99
Oxygen Mode of Delivery: Room air
Patient hypoxic: no
*Critical Care Note
Total Time (30-74mins, 75-104mins- exclusive of procedures): Not Applicable
ED Attending Note
-
Portions of this chart may have been created with voice recognition software.� Occasional wrong word or��sound alike� substitutions may have occurred due to the inherent limitations of voice recognition software.
Discharge Plan
Departure
Prescriptions:
No Action
quetiapine [Seroquel] 25 mg Tablet
25 mg PO DAILY
acetaminophen [Tylenol] 325 mg Tablet
650 mg PO QID PRN (Reason: pain)
polyethylene glycol 3350 17 gram Powder In Packet
17 g PO DAILY PRN (Reason: Constipation)
pravastatin 40 mg Tablet
40 mg PO DAILY
citalopram 10 mg Tablet
10 mg PO DAILY
loperamide [Imodium A-D] 2 mg Tablet
2 mg PO Q6H PRN (Reason: diarrhea)
guaifenesin 100 mg/5 mL Liquid
300 mg PO Q4H PRN (Reason: cough)
famotidine 20 mg Tablet
20 mg PO DAILY
docusate sodium 100 mg Capsule
100 mg PO BID
folic acid 1 mg Tablet
1 mg PO DAILY
calcium carbonate 500 mg calcium (1,250 mg) Tablet,Chewable
500 mg PO DAILY
aspirin 81 mg Tablet
81 mg PO DAILY
carbidopa-levodopa 25-100 mg Tablet
2 tab PO QID
quetiapine [Seroquel] 50 mg Tablet
50 mg PO HS
diclofenac sodium 1 % Gel
4 g TOPICAL QID
Rx Instructions:
apply to R shoulder for pain
melatonin 5 mg Tablet
10 mg PO HS PRN (Reason: insomnia)
cholecalciferol (vitamin D3) [Vitamin D3] 125 mcg (5,000 unit) Tablet
125 mcg PO DAILY
Referrals:
Tha Aviles MD [Family Provider]
Interventions
Interventions:
*Risk Screen - Suicide Last Done: 08/23/25 23:29
*General Assessment Last Done: 08/23/25 23:29
*Neglect/Abuse Screening Last Done: 08/23/25 23:29
*ED- Fall Risk Assessment Last Done: 08/23/25 23:29
*ED COVID-19 Vaccine History Last Done: 08/23/25 23:29
*ED Influenza Vaccine History Last Done: 08/23/25 23:29
ED- Neurological Assessment Last Done: 08/24/25 00:00
ED-Skin Assessment Last Done: 08/24/25 00:00
Discharge Date and Time
Print Language: IRISH
[2025-08-24] VITALS (7 sets, daily range): BP systolic 92–128; BP diastolic 50–95
== END 2025-08-24 06:40 ==
LOC: EMR 23:17
PROVIDERS: EMERGENCY PHYSICIAN Emergency Medicine; FAMILY PHYSICIAN Internal Medicine
DX: Z04.3 Encounter for examination and observation following other accident (principal); W07.XXXA Fall from chair, initial encounter; G20.A1 Parkinson's disease without dyskinesia, without mention of fluctuations; F02.80 Dementia in other diseases classified elsewhere, unspecified severity, without behavioral disturbance, psychotic disturbance, mood disturbance, and anxiety; E78.00 Pure hypercholesterolemia, unspecified; I10 Essential (primary) hypertension; K21.9 Gastro-esophageal reflux disease without esophagitis
CPT/HCPCS: 99284; 70450